=== PATIENT | male | born 1985 | race Native Hawaiian/Other Pacific Islander ===

== ENCOUNTER 2019-10-08 10:18 | Outpatient (CLI) | payer BC, OTHER | END 2019-10-08 23:01 | disposition home or self-care (01) | LOC: RAD 10:18 → LAB 10:18 → RAD 23:01 | DX: Z20.828 Contact with and (suspected) exposure to other viral communicable diseases (principal); R05 Cough; R53.83 Other fatigue | CPT/HCPCS: 87635; G2023; U0003 ==

== ENCOUNTER 2021-09-01 12:24 | Emergency (ER) | payer OTHER ==
[~2021-09-01] VITALS: Ht 182.9 cm; Wt 65.3 kg
[2021-09-01 13:03] LABS: PLATELET COUNT 191 K/uL (142-355)
[2021-09-01 14:23] VITALS: BP 116/77; TEMP 98
== END 2021-09-01 14:23 | disposition home or self-care (01) ==
LOC: ED 12:24
PROVIDERS: Emergency Medicine
DX: R11.2 Nausea with vomiting, unspecified (principal); E16.2 Hypoglycemia, unspecified; R07.89 Other chest pain; M54.59 Other low back pain; R06.02 Shortness of breath; F17.210 Nicotine dependence, cigarettes, uncomplicated
CPT/HCPCS: 80053; 85027; 93005; 99283